=== PATIENT | female | born 1960 | race Caucasian/White ===

== ENCOUNTER → 2019-04-07 07:06 | Outpatient (CLI) | payer BC, SELFPAY ==
[2019-04-07 07:11] LABS: RBC Urine None Seen (0-5/HPF)
[2019-04-07 07:50] LABS: Appearance Urine UA CLEAR; Bilirubin Urine UA NEGATIVE (NEGATIVE); Color Urine UA YELLOW; Glucose Urine UA NEGATIVE (Negative); Ketones Urine UA NEGATIVE (NEGATIVE); Leukocyte Esterase Urine UA 1+ (NEGATIVE); Nitrite Urine UA NEGATIVE (Negative); Occult Blood Urine UA NEGATIVE (Negative); Protein Urine UA NEGATIVE (Negative); Specific Gravity Urine UA 1.015 (1.000-1.035); Urobilinogen Urine UA 0.2 E.U./dL (0.2)
[2019-04-07 07:53] LABS: Add Manual Diff / Slide Review NO; Basophils Absolute Auto 0 /uL (0-100); Basophils Percent Auto 0.8 % (0-2); Eosinophils Absolute Auto 100 /uL (0-450); Eosinophils Percent Auto 1.1 % (2-4); Hematocrit 41.6 % (36-46); Hemoglobin 14.2 g/dL (12.0-16.0); Lymphocytes Absolute Auto 1600 /uL (1100-4500); Lymphocytes Percent Auto 31.9 % (25-40); Mean Corpuscular HGB Conc 34.2 % (30-36); Mean Corpuscular Hemoglobin 30.6 PG (26-34); Mean Corpuscular Volume 89.5 fL (80-100); Monocytes Absolute Auto 500 /uL (0-900); Monocytes Percent Auto 9.4 % (3-14); Neutrophils Absolute Auto 2800 /uL (1500-7000); Neutrophils Percent Auto 56.8 % (50-75); Platelet Count 200 X10^3/uL (150-400); Red Blood Cell Count 4.65 X10^6/uL (4.0-5.2); Red Cell Distribution Width 13.9 % (11.6-14.8)
[2019-04-07 07:59] LABS: Alanine Aminotransferase 14 IU/L (<35); Albumin 4.1 g/dL (3.5-5.0); Albumin Globulin Ratio 1.5 (1.0-2.8); Alkaline Phosphatase 85 U/L (38-126); Aspartate Aminotransferase 19 IU/L (14-36); BUN Creatinine Ratio 16.7 (6-22); Bilirubin Total 0.3 mg/dL (0.2-1.3); Blood Urea Nitrogen 10 mg/dL (7-17); Calcium 9.2 mg/dL (8.4-10.2); Carbon Dioxide 25 mmol/L (22-32); Chloride 106 mmol/L (98-107); Cholesterol 148 mg/dL (140-199); Estimated Glomerular Filt Rate > 60.0 mL/min (>60); Globulin 2.7 g/dL (1.7-4.1); Glucose 109 mg/dL (70-100); HDL Cholesterol 73 mg/dL (40-60); HEMOLYSIS < 15 (0-50); LDL Cholesterol Calculated 65 mg/dL (<100); Sodium 139 mmol/L (137-145); Total Protein 6.8 g/dL (6.3-8.2); Triglycerides 50 mg/dL (35-150)
[2019-04-07 08:00] LABS: Potassium 3.8 mmol/L (3.4-5.1)
[2019-04-07 08:19] LABS: WBC Urine 1-5/HPF (0-5/HPF); pH Urine UA 7.5 (4.5-8.0)
[2019-04-07 08:20] LABS: Bacteria Urine Moderate (10-30); Culture Indicated Urine Specimen Cultured; Mucus Urine 1+ (Negative); Squamous Epithelial Cell Urine 1-5 /HPF (0-5/HPF)
[2019-04-07 08:44] LABS: Thyroid Stimulating Hormone 1.11 uIU/mL (0.47-4.68)
== END ==
PROVIDERS: PCP Family Medicine; Visit Provider Family Medicine
DX: Z00.00 Encounter for general adult medical examination without abnormal findings (principal); Z13.220 Encounter for screening for lipoid disorders; Z13.29 Encounter for screening for other suspected endocrine disorder; R39.89 Other symptoms and signs involving the genitourinary system
CPT/HCPCS: 36415; 80053; 80061; 81001; 84443; 85025; 87077; 87086

== ENCOUNTER → 2019-04-23 08:55 | Outpatient (CLI) | payer BC, SELFPAY ==
--- NOTE | 2019-04-23 08:57 | DI.US.S_ITS ---
PROCEDURE: US ABDOMEN COMPLETE INDICATIONS: RUQ PAIN TECHNIQUE: Real-time scanning was performed of the abdominal and retroperitoneal organs, with image documentation. COMPARISON: None. FINDINGS: Liver: Liver is normal in size and homogeneous in echotexture. Gallbladder: The gallbladder contains a relatively large stone measuring up to 2.5 cm, and the gallbladder wall is not thickened significantly. There is tenderness during sonographic palpation over the gallbladder at the right upper quadrant. Biliary ducts: Intrahepatic bile ducts are non-dilated. Extrahepatic bile duct caliber measures 7.5 mm. Normal is 6-7 mm or less in diameter, or 10 mm or less post-cholecystectomy. Pancreas: Visualized portions of the pancreas are sonographically normal. Spleen: Spleen is normal in size and homogeneous in echotexture. Kidneys: Kidneys are normal in size by craniocaudad measurement, but appears moderately atrophic with renal cortical thinning bilaterally measuring only 7 mm on the right and 6 mm on the left. Normal renal echotexture. Right kidney measures 10.8 cm long; left kidney measures 10.8 cm long. No hydronephrosis or nephrolithiasis. No solid masses. Aorta: Visualized aorta is normal in caliber at less than 3 cm. Iliacs: Proximal common iliac arteries are normal in caliber at less than 2.5 cm. IVC: Intrahepatic inferior vena cava is patent. Miscellaneous: No free abdominal fluid. IMPRESSION: No hydronephrosis or nephrolithiasis. Note is made of a moderate degree of renal cortical thinning bilaterally despite normal craniocaudad length of the kidneys. Moderately large gallstone within the gallbladder lumen is present, but no definite acute cholecystitis is found. Dictated by: Edwin Mathew M.D. on 04/23/2019 at 10:54 Approved by: Edwin Mathew M.D. on 04/23/2019 at 10:57
== END ==
PROVIDERS: PCP Family Medicine; Visit Provider Family Medicine
DX: R10.11 Right upper quadrant pain (principal); K80.20 Calculus of gallbladder without cholecystitis without obstruction
CPT/HCPCS: 76700

== ENCOUNTER 2019-06-25 06:34 | Day surgery (SDC) | payer BC, SELFPAY ==
[2019-06-24 10:48] VITALS: BMI 19.2
[2019-06-25] VITALS (8 sets, daily range): BP systolic 110–181; BP diastolic 63–101; PULSE 77–114; RESP 15–30; TEMP 36.4–37.1; O2SAT 94–99; BMI 19.2
--- NOTE | 2019-06-25 | PATH_ITS ---
[facility] Accession Number: [id number] . 01 Material submitted: . gallbladder - GALLBLADDER AND CONTENTS . 02 Diagnosis: Gallbladder and Contents, Cholecystectomy: Gallbladder with chronic cholecystitis, cholesterolosis, cholelithiasis, and patchy regions of low grade dysplasia, some in a polypoid configuration consistent with tubular adenoma. One benign cystic duct lymph node (0/1). No dysplasia is identified at the cystic duct margin. MRV 06/30/2019 1627 Local . 02 Electronically signed: . Jennifer Khan MD, Pathologist NPI- [id number] . 01 Gross description: . Received in formalin, labeled gallbladder and contents, is an intact gallbladder (length-13.7 cm, diameter-3.0 cm) with patel-purple, smooth shiny serosa and a patent cystic duct. A 0.9 x 0.7 x 0.2 cm lymph node is identified. The lumen contains dark green viscous bile and multiple stone, solid, hard calculi (7.2 x 2.3 x 2.3 cm) with shala crystalline cut surfaces. The mucosa is stone-green with a trabeculated appearance and contains multiple possible polyps (0.4 x 0.3 x 0.2 cm-0.6 x 0.5 x 0.5 cm). The wall is up to 0.1 cm thick. Section code: (A1) cystic duct resection margin and two serial sections from the body; (A2) multiple access services representative serial sections from the body; (A3) two bisected possible polyps, entirely submitted; (A4) two longitudinal representatives from the fundus; (A5) one trisected lymph node. ([id number]) Additional sections: (A6-A8) additional access services representative serial sections from the body; (A9, A10) additional access services representative longitudinal sections from the fundus. ([id number]) /MRV 06/27/2019 1435 Local . 02 Pathologist provided ICD-10: K80.20 . 02 CPT . 436647 Performed at: 01 [facility] [address] [id number] MD Janes Guzman MD Phone: [phone] Performed at: 02 [facility] [address] [place] [id number] MD Ricarda Chaparro MD Phone: [phone]
[2019-06-25] MEDS: LACTATED RINGERS 1,000 ML 42 ML IV (07:14)
--- NOTE | 2019-06-25 07:36 | PM.HP.1 ---
History of Present Illness History of Present Illness Date Patient Seen: 06/25/19 Time Patient Seen: 07:36 Chief complaint: 48895 LAP YING Narrative: This is a 59-year-old woman with symptomatic cholelithiasis who is here for laparoscopic cholecystectomy. She came to see me in April with history of 1 severe episode of right upper quadrant pain associated with nausea and vomiting. She had an ultrasound which showed a 2.5 cm gallstone and otherwise normal gallbladder. She had another episode this past Sunday. Again lasted about 20 minutes, and was associated with severe right upper quadrant pain. She denies any jaundice or fevers associated with these episodes. ROS: On her 13 system ROS she notes night sweats, itching, and joint pain. Thirteen system review is otherwise negative other than as mentioned below and in HPI. PE: GENERAL: Well groomed and cooperative. Thin. BMI 20. Appears stated age. Answers questions promptly and appropriately. Vital signs noted. HENT: Normocephalic, atraumatic. Hearing intact. Oral mucosa is pink and moist. EYES: Conjunctiva pink, sclera white, no periorbital swelling. CARDIOVASCULAR: Regular rate. No pedal edema. RESPIRATORY: Non-tachypneic, breathing comfortably on room air. GASTROINTESTINAL: Abdomen soft and non-distended; nontender. She has a non reducible supraumbilical bulge which is likely a hernia with incarcerated preperitoneal fat. It's nontender on exam. GENITALURINARY: No flank tenderness. MUSCULOSKELETAL: Equal tone and mass bilaterally. SKIN: Warm, dry, soft, appropriate color for ethnicity. No other lesions, rashes, or wounds. NEURO: Alert and Oriented X 3. No gross sensory deficits, or cognitive issues. PSYCH: Appropriate affect and mood. Patient History Medical History Arthritis (Acute) Headache (Acute) Osteoarthritis (Acute) Sinus drainage (Acute) Surgical History No history of previous surgery (Acute) Family & Social History Family History Father Gallstones Mother Cancer Social History: household members family Tobacco & Substance use: Tobacco type cigarettes Smoking Status Current every day smoker alcohol intake current alcohol intake frequency holiday/special occasion Substance Use Type marijuana Meds Home Medications and Allergies Home Medications Medication Instructions Recorded Confirmed Type ibuprofen 800 mg tablet 800 mg PO Q8H 04/11/19 06/24/19 History multivitamin 1 tab PO DAILY 04/11/19 06/24/19 History Allergies Allergy/AdvReac Type Severity Reaction Status Date / Time No Known Allergies Allergy Uncoded 06/25/19 07:04 Exam Vital Signs (past 8 hours): - 06/25/19 07:18 Temperature 97.6 F Pulse Rate 77 Respiratory Rate 17 Blood Pressure 157/100 H Pulse Oximetry 99 Oxygen Delivery Method Room Air Oxygen Flow Rate 0 Assessment & Plan Assessment and plan (1) Gallstone: Current visit: No Status: Acute (2) RUQ pain: Current visit: No Status: Acute (3) Smoking addiction: Current visit: No Status: Chronic (4) Symptomatic cholelithiasis: Problem details: Risks and benefits of laparoscopic possible open cholecystectomy were discussed with the patient including risk of bleeding, infection, damage to nearby structures, bile leak, bile duct injury, need for additional procedures, need for open operation, need for prolonged recovery, need for transfer to tertiary center. The patient desires to proceed with her gallbladder surgery. Current visit: No Status: Acute Quality VTE Deep Vein Thrombosis/Pulmonary Embolism Present on Admission: No
[2019-06-25] MEDS: PIPERACILLIN-TAZO 3.375 GM/50 ML FROZ.PIGGY IV (07:40)
[2019-06-25] MEDS: BUPIVACAINE 0.25% W/ EPI 30 ML VIAL INJ ×2 (08:31→09:33)
[2019-06-25] MEDS: MEPERIDINE 50 MG/ML INJ 25 MG IV (09:58)
--- NOTE | 2019-06-25 10:11 | PM.OP.1 ---
Operative Date/Time/Diagnoses Date of procedure: 06/25/19 Time of procedure: 10:11 Pre-op diagnosis: symptomatic cholelithiasis Post-op diagnosis: other (symptomatic cholelithiasis, chronic cholecystitis) Procedure & Clinicians Procedure: Laparoscopic cholecystectomy, intra op cholangiogram with indocyanine green and fluroescent imaging, CPT 16662 Same procedure as scheduled: Yes Indications: Symptomatic cholelithiasis Surgeon: Rina Orr Click Yes if Unassisted: Yes Anesthesia Type: General Operative Notes Findings: Large elongated gall bladder with large stone; good critical view, confirmed with fluorescent imaging cholangiogram Specimen(s): other (gall bladder and contents) Estimated Blood Loss (mL): 1 Blood products transfused: none Procedure in detail: The patient was brought into the operating room and placed supine on the OR table. Sequential compression devices were placed on both legs and turned on. Appropriate perioperative antibiotics were given prior to the start of surgery. General anesthesia was induced the patient was intubated. The abdomen was prepped and draped in sterile fashion. Surgical time-out was conducted. Local anesthetic was injected under the skin just inferior to the umbilicus and a 5 mm vertical incision was made at this site. The umbilical stalk was grasped with a Lupe and elevated. A Veress needle was passed through the fascia into proper position. The position was tested with a saline drop test which was appropriate for intra-abdominal Veress needle placement. The abdomen was then insufflated in the usual fashion. Once insufflated to 15 mm Hg the Veress needle was removed and a 5 mm optical trocar was placed under direct vision using a 5 mm 30 degree scope. Once the camera was inside the abdomen I took a look around. There was no injury from port placement. The gallbladder was very elongated and was overhanging the transverse colon, with extensive adhesions to the colon, stomach, omentum, and liver. 5 mm port was placed in the right upper quadrant, and the 10 mm epigastric port was placed under direct vision. Through these 2 ports I grasped the gallbladder, and elevated away from the surrounding structures, and began dissecting out the adhesions. After prolonged and tedious dissection the gallbladder was freed from the surrounding structures, and safe to proceed with hilar dissection. A 2nd port was placed in the right upper quadrant. Through the 2 lateral ports the gallbladder was grasped and elevated and the infundibulum was retracted laterally to the patient's right. This exposed the gallbladder hilum and allowed for dissection of the cystic duct and cystic artery. There is quite a bit of dense scar tissue throughout the gallbladder hilum. The patient was given indocyanine green 45 minutes prior to the start of the procedure. At this point I used the fluorescene lamp to identify the cystic duct and common duct. Three fluorescent cholangiography, I was able to identify both ducts, and identify safe plane of dissection to avoid injury to the common bile duct. Dissection of the gallbladder hilum was undertaken, dissecting out the cystic duct and artery.. Once the cystic duct and artery were completely dissected out and I was able to see liver behind and between both structures without any other structures in the way, giving us the critical view of safety. I took another view with the a fluorescent lamp, and confirmed that the cystic duct and artery were in the expected positions, with a good critical view of safety. At this point I doubly clipped both structures on the patient's side and put a single clip on the gallbladder side of both the cystic duct and artery. Both structures were then divided with laparoscopic [place]. There was an additional arterial structure running posteriorly, consistent with a posterior branch of the cystic artery. I took additional views with the fluorescent lamp, to confirm this was not an accessory bile duct. I then clipped this with 2 clips on the patient's side and 1 on the gallbladder side, divided between with laparoscopic mass. Following this the gallbladder was gradually dissected free from the liver. There was quite a bit of hypervascularity of the scar tissue between the gallbladder and the liver. Several small vessels had to be controlled with cautery. Once the gallbladder was entirely freed, it was placed inside an Endo-Catch bag and removed through the epigastric port site. I did have to enlarge the epigastric site quite a bit in order to get the gallbladder out. Once it was out and passed off to the back table I then took another look inside the abdomen. I suctioned clean any remaining blood or fluid on the lateral side of the liver and in the subhepatic space. I also suctioned some serosanguineous fluid from the pelvis. There was no active bleeding or leaking of bile from the gallbladder fossa or from the clipped stumps of the cystic duct and artery. At this point the insufflation was removed from the abdomen and the epigastric port site was closed with running 0 Vicryl suture in the fascia, 3 O Vicryl in the subcutaneous layers, and 4 Monocryl in the skin. The remaining port sites were closed with 4 Monocryl in the skin. Each port site was sealed with Dermabond. Additional Steri-Strips were placed over the epigastric port site, as well as a 4 x 4 and Tegaderm. Local anesthetic was given at each of the port sites and in the fascia. This concluded the procedure. At this point the needle sponge and instrument counts were correct. The gallbladder was passed off the table for pathology. Patient was awakened from anesthesia and extubated. She was transferred to the postanesthesia care unit in stable condition. Complications: none Post-operative Condition: stable Disposition: PACU
[2019-06-25] MEDS: OXYCODONE IR 5 MG TABLET PO (10:23)
[2019-06-25] MEDS: ONDANSETRON 4 MG/2 ML INJ IV (10:30)
== END 2019-06-25 11:45 | disposition home or self-care (01) ==
PROVIDERS: PCP Family Medicine; Referring Provider Surgery; Visit Provider Surgery
PROC: 0FT44ZZ Resection of Gallbladder, Percutaneous Endoscopic Approach (ICD-10-PCS; CPT 47562; principal; 2019-06-25 07:45)
DX: K80.10 Calculus of gallbladder with chronic cholecystitis without obstruction (principal); F17.210 Nicotine dependence, cigarettes, uncomplicated
CPT/HCPCS: 47563; J0330; J0360; J1100; J1170; J1885; J2175; J2250; J2405; J2543; J2704; J3010